=== PATIENT | female | born 1975 | race Asian ===

== ENCOUNTER 2016-05-05 04:10 | Inpatient (IN) | payer SELFPAY ==
[~2016-05-05] VITALS: Ht 155 cm; Wt 79.4 kg
[2016-05-05] MEDS ORDERED: LACTATED RINGERS 1,000 ML IV SCH (04:33)
[2016-05-05] MEDS ORDERED: CITRIC ACID/SODIUM CITRATE 30 ML UDC PO SCH (04:35)
[2016-05-05 05:10] VITALS: BP 100/62
[2016-05-05] MEDS ORDERED: NEPHRO-VITE VIT1 TAB PO (06:21)
[2016-05-05] MEDS ORDERED: NATURAL IRON65 MG PO (06:21)
[2016-05-05] MEDS ORDERED: PRENATAL VITAMI1 TA2 PO (06:21)
[2016-05-05] MEDS ORDERED: OXYTOCIN 20 UNITS/LR PREMIX 1,000 ML IV SCH ×3 (06:56→23:59)
[2016-05-05] MEDS ORDERED: oxyCODONE/APAP 5/325 MG 1 TAB TAB PO PRN (07:00)
[2016-05-05] MEDS ORDERED: METHYLERGONOVINE 0.2 MG/ML AMP IM PRN (07:00)
[2016-05-05] MEDS ORDERED: SIMETHICONE 80 MG TAB.CHEW PO PRN (07:00)
[2016-05-05] MEDS ORDERED: MEASLES, MUMPS, AND RUBELLA 1 VIAL SQVAC PRN (07:00)
[2016-05-05] MEDS ORDERED: TRIMETHOBENZAMIDE 200 MG/2 ML SYR IM PRN (07:00)
[2016-05-05] MEDS ORDERED: TEMAZEPAM 15 MG CAP PO PRN (07:00)
[2016-05-05] MEDS ORDERED: MORPHINE PRES FREE 10 MG/10 ML AMP IV ONE (07:42)
[2016-05-05] MEDS ORDERED: ONDANSETRON 4 MG/2 ML VIAL ONE (07:45)
[2016-05-05] MEDS ORDERED: OXYTOCIN 10 UNITS/ML VIAL ONE ×2 (07:45→07:59)
[2016-05-05] MEDS ORDERED: BUPIVACAINE-MPF 0.75% 10 ML VIAL INJ ONE (07:45)
[2016-05-05] MEDS ORDERED: TRIAMCINOLONE 40 MG/ML 5ML VIAL ONE (07:52)
[2016-05-05] MEDS ORDERED: METHYLERGONOVINE 0.2 MG/ML AMP ONE (07:52)
[2016-05-05] MEDS ORDERED: diphenhydrAMINE 50 MG/ML VIAL IVP PRN (08:05)
[2016-05-05] MEDS ORDERED: NALOXONE 0.4 MG/ML VIAL IVP PRN ×2 (08:05)
[2016-05-05] MEDS ORDERED: KETOROLAC 30 MG/ML VIAL IVP PRN (08:05)
--- NOTE | 2016-05-05 09:12 | NUR ---
PATIENT HAS BEEN SCREENED AND CATEGORIZED LOW NUTRITION RISK. PATIENT WILL BE SEEN WITHIN 7 DAYS OF ADMISSION. 05/11/[address]
[2016-05-05] MEDS ORDERED: OXYTOCIN 20 UNITS/LR PREMIX 1,000 ML IV ONE (09:15)
[2016-05-05] MEDS: DOCUSATE SOD/SENNA 50/8.6 MG 1 TAB PO SCH (21:00)
[2016-05-06] MEDS: HYDROcodone/APAP 5/325 MG 1 TAB TAB PO PRN (12:26)
[2016-05-06] MEDS: IBUPROFEN 800 MG TAB PO PRN (16:37)
[2016-05-06] MEDS ORDERED: INFLUENZA VIRUS VACCINE QUAD 0.5 ML SYR IMVAC SCH (19:00)
[2016-05-06] MEDS: DOCUSATE SOD/SENNA 50/8.6 MG 1 TAB PO SCH (21:02)
[2016-05-07] MEDS: HYDROcodone/APAP 5/325 MG 1 TAB TAB PO PRN (03:34)
[2016-05-07] MEDS: IBUPROFEN 800 MG TAB PO PRN (08:29)
[2016-05-07] MEDS: DOCUSATE SOD/SENNA 50/8.6 MG 1 TAB PO SCH (20:53)
== END 2016-05-08 11:20 | disposition home or self-care (01) | DRG 766 ==
LOC: MFCC 04:10
PROVIDERS: ADMIT Obstetrics & Gynecology; ATTEND Obstetrics & Gynecology
PROC: 10D00Z1 Extraction of Products of Conception, Low, Open Approach (ICD-10-PCS; principal; 2016-05-05 07:30)
DX: O34.211 Maternal care for low transverse scar from previous cesarean delivery (principal); Z3A.39 39 weeks gestation of pregnancy; Z37.0 Single live birth; O75.89 Other specified complications of labor and delivery; O09.523 Supervision of elderly multigravida, third trimester